=== PATIENT | female | born 1990 | race Caucasian/White ===

== ENCOUNTER 2020-06-10 09:57 | Inpatient (IN) | payer BC ==
--- NOTE | 2020-06-10 10:20 | NUR ---
BOTH NARES SWABBED FOR COVID-19 WITHOUT COMPLICATION. SAMPLE TAKEN TO [facility] FOR RAPID TESTING.
--- NOTE | 2020-06-10 14:48 | PR ---
[facility] [address] [facility] [place], [place] [address] Signed Progress Notes IP Datetime Report Generated by CPN: 06/10/2020 14:48 PROGRESS NOTES: [id number] Impression: Normal Progression of Labor; Reassuring Heart Rate Procedures: Artificial ROM; Scalp Electrode Plan: Continue Present Management VITAL SIGNS: [id number] Vital Signs: Reviewed; Within Normal Limits EXAM: [id number] Dilatation: 3.0 Effacement: 50 Station: -3 Contractions: occ MEMBRANES: [id number] Comments: Will continue to closely monitor contractions and FHTs. FETUS A: [id number] FHR Baseline: 130 Variability: Moderate 6-25bpm Accelerations: 15X15 Decelerations: None FHR Category: Category I Presentation: Vertex Comments on Fetus A: very reassuring thus far FETUS B: [id number] Signing Physician: Charlotte Young MD Copies: ~ *Electronically Signed* 06/10/20 1448 CHARLOTTE YOUNG MD PATIENT NAME: TROY PAK PROGRESS NOTE DATE OF : 90 PHYSICIAN: CHARLOTTE YOUNG MD RPT #: [id number] REPORT IS CONFIDENTIAL AND NOT TO BE RELEASED WITHOUT AUTHORIZATION
--- NOTE | 2020-06-10 17:02 | PR ---
[facility] [address] [facility] [place], [place] [address] Signed Progress Notes IP Datetime Report Generated by CPN: 06/10/2020 17:02 PROGRESS NOTES: [id number] Impression: Normal Progression of Labor; Reassuring Heart Rate Other Impressions: no real change in cervix Procedures: Sterile Vag Exam Plan: Continue Present Management Other Plans: position changes VITAL SIGNS: [id number] Vital Signs: Reviewed; Within Normal Limits EXAM: [id number] Dilatation: 3.0 Effacement: 50 Station: -2 Contractions: occ MEMBRANES: [id number] Comments: Comfortable after epidural. Mod variability still but with intermittent lates. Will try position changes to see if this will improve the FHTs. Will continue close observation. FETUS A: [id number] FHR Baseline: 130 Variability: Moderate 6-25bpm Accelerations: 15X15 Decelerations: None FHR Category: Category I Presentation: Vertex Comments on Fetus A: very reassuring thus far FETUS B: [id number] Signing Physician: Charlotte Young MD Copies: ~ *Electronically Signed* 06/10/20 170 CHARLOTTE YOUNG MD PATIENT NAME: TROY PAK PROGRESS NOTE DATE OF : 90 PHYSICIAN: CHARLOTTE YOUNG MD RPT #: [id number] REPORT IS CONFIDENTIAL AND NOT TO BE RELEASED WITHOUT AUTHORIZATION
--- NOTE | 2020-06-10 19:26 | PR ---
[facility] [address] [facility] [place], [place] [address] Signed Progress Notes IP Datetime Report Generated by CPN: 06/10/2020 19:26 PROGRESS NOTES: [id number] Impression: Normal Progression of Labor; Reassuring Heart Rate Other Impressions: slow progress, diarrhea Procedures: Sterile Vag Exam Plan: Continue Present Management Other Plans: position changes VITAL SIGNS: [id number] Vital Signs: Reviewed; Within Normal Limits EXAM: [id number] Dilatation: 3.0 Effacement: 50 Station: -2 Contractions: occ MEMBRANES: [id number] Comments: Slow progress. Will continue current regimen. FETUS A: [id number] FHR Baseline: 130 Variability: Moderate 6-25bpm Accelerations: 15X15 Decelerations: None FHR Category: Category I Presentation: Vertex Comments on Fetus A: very reassuring thus far FETUS B: [id number] Signing Physician: Charlotte Young MD Copies: ~ *Electronically Signed* 06/10/201925 CHARLOTTE YOUNG MD PATIENT NAME: TROY PAK PROGRESS NOTE DATE OF : 90 PHYSICIAN: CHARLOTTE YOUNG MD RPT #: [id number] REPORT IS CONFIDENTIAL AND NOT TO BE RELEASED WITHOUT AUTHORIZATION
--- NOTE | 2020-06-11 09:18 | PR ---
[facility] [address] [facility] [place], [place] [address] Signed PP Progress Notes Datetime Report Generated by CPN: 06/11/2020 09:18 SUBJECTIVE: [id number] Pain: Abnormal Pain Comments: C/O worsening cramps Nausea/Vomiting: Denies Vital Signs: [id number] Vital Signs: Reviewed; Within Normal Limits Cardiovascular: Not Done Respiratory: Not Done Abdomen/Uterus: Abnormal Lochia: Normal Vulva/Perineum: Not Done Breasts: Not Done CVA Tenderness: Not Done Extremities: Normal Incision: Not Applicable Progress: Abnormal Exam Comments: Fundus firm, NT @ U-4. H/H 11.9/35.9, WBC 19, plat 218k IMPRESSION/PLAN/PROCEDURES: [id number] Impression: Normal Progression; Pain Other Plans: add Kpad, allow Percocet Progress Notes: Doing well but c/o severe cramping. Will start Kpad and allow some Percocet. Discussed her chronic pain issues and she does need to have a diagnosis before continuing chronic narcotics. Signing Physician: Charlotte Young MD Copies: ~ *Electronically Signed* 06/11/20917 CHARLOTTE YOUNG MD PATIENT NAME: TROY PAK PROGRESS NOTE DATE OF : 90 PHYSICIAN: CHARLOTTE YOUNG MD RPT #: [id number] REPORT IS CONFIDENTIAL AND NOT TO BE RELEASED WITHOUT AUTHORIZATION
== END 2020-06-12 14:01 | disposition home or self-care (01) | DRG 806 ==
LOC: FBC 09:57
PROVIDERS: ADMIT Obstetrics & Gynecology; ATTEND Obstetrics & Gynecology
PROC: 10E0XZZ Delivery of Products of Conception, External Approach (ICD-10-PCS; principal; 2020-06-10)
PROC: 0UQMXZZ Repair Vulva, External Approach (ICD-10-PCS; 2020-06-10)
PROC: 10907ZC Drainage of Amniotic Fluid, Therapeutic from Products of Conception, Via Natural or Artificial Opening (ICD-10-PCS; 2020-06-10)
PROC: 3E033VJ Introduction of Other Hormone into Peripheral Vein, Percutaneous Approach (ICD-10-PCS; 2020-06-10)
PROC: 00HU33Z Insertion of Infusion Device into Spinal Canal, Percutaneous Approach (ICD-10-PCS; 2020-06-10)
PROC: 3E0R3BZ Introduction of Anesthetic Agent into Spinal Canal, Percutaneous Approach (ICD-10-PCS; 2020-06-10)
DX: O36.5930 Maternal care for other known or suspected poor fetal growth, third trimester, not applicable or unspecified (principal); O41.03X0 Oligohydramnios, third trimester, not applicable or unspecified; Z37.0 Single live birth; O99.324 Drug use complicating childbirth; O99.354 Diseases of the nervous system complicating childbirth; G89.29 Other chronic pain; Z3A.38 38 weeks gestation of pregnancy; Z20.822 Contact with and (suspected) exposure to COVID-19; O32.2XX0 Maternal care for transverse and oblique lie, not applicable or unspecified; O71.82 Other specified trauma to perineum and vulva; F11.10 Opioid abuse, uncomplicated
CPT/HCPCS: 01960; 36415; 85027; A9270; C9803; J2590; J2795; J3010; U0003